=== PATIENT | male | born 1990 | race Hispanic/Latino ===

== ENCOUNTER 2022-06-06 07:39 | Emergency (ER) | payer OTHER ==
[~2022-06-06] VITALS: Ht 188 cm; Wt 130.4 kg
[2022-06-06] MEDS ORDERED: KETOROLAC TROMETHAMINE 30 MG/ML VIAL IM STA (08:20)
[2022-06-06] MEDS ORDERED: CYCLOBENZAPRINE5 MG PO (08:26)
[2022-06-06] MEDS ORDERED: NAPROSYN500 MG PO (08:26)
[2022-06-06] MEDS ORDERED: CYCLOBENZAPRINE HCL 10 MG TAB PO ONE (08:30)
[2022-06-06] MEDS ORDERED: CYCLOBENZAPRINE HCL 10 MG TAB ONE (08:37)
[2022-06-06] MEDS ORDERED: KETOROLAC TROMETHAMINE 30 MG/ML VIAL ONE (08:37)
== END 2022-06-06 08:41 | disposition home or self-care (01) ==
LOC: FSED 08:14
DX: M54.50 Low back pain, unspecified (principal); M79.18 Myalgia, other site; X50.1XXA Overexertion from prolonged static or awkward postures, initial encounter; Y92.89 Other specified places as the place of occurrence of the external cause; F17.210 Nicotine dependence, cigarettes, uncomplicated
CPT/HCPCS: 81003; 96372; 99283; J1885